=== PATIENT | female | born 1990 | race Caucasian/White ===

== ENCOUNTER 2017-09-19 15:05 | Emergency (ER) | payer BC ==
[~2017-09-19] VITALS: Ht 170.2 cm; Wt 73.4 kg
[~2017-09-19 15:05] MED LIST: DOCUSATE SODIU100 M1 PO; FIORICET,ESG1 TABLET PO; MULTIVITAMIN1 EAC2 PO; NAPROSYN500 MG PO; PEPCID20 MG PO; Percocet 5/325,Endoc PO; ULTRAM50 MG PO; ZOFRAN4 MG PO; vitamin b
[2017-09-19 17:06] LABS: HEMATOCRIT 40.5 % (36.0-46.0); HEMOGLOBIN 13.9 G/DL (11.9-15.5); MCH 30.1 PG (29.0-34.0); MCHC 34.3 G/DL (30.0-36.0); MCV 87.7 FL (83-99); PLATELET COUNT 321 K/uL (156-360); RBC DIS.WIDTH-CV 11.9 % (11.8-14.6); RBC DIS.WIDTH-SD 38.2 % (39-53); RED BLOOD COUNT 4.62 M/uL (3.80-5.20); WHITE BLOOD COUNT 8.7 K/uL (4.1-10.2)
[2017-09-19 17:18] LABS: CHLORIDE 107 mEq/L (99-109); POTASSIUM 4.3 mEq/L (3.7-5.4); SODIUM 137 mEq/L (136-147)
[2017-09-19 17:19] LABS: GLUCOSE 87 mg/dL (70-99)
[2017-09-19 17:23] LABS: CREATININE 0.8 mg/dL (0.6-1.3); GFR ESTIMATE (CALCULATED) > 59 mL/min/
[2017-09-19 17:24] LABS: UREA NITROGEN (BUN) 15 mg/dL (9-23)
[2017-09-19 17:31] LABS: QUANTITATIVE HCG < 4.0 MIU/ML
[2017-09-19] MEDS ORDERED: REGLAN10 MG PO (17:46)
[2017-09-19 18:32] VITALS: BP 120/79
== END 2017-09-19 18:33 | disposition home or self-care (01) ==
LOC: EME 15:05
PROVIDERS: Physician Assistant
DX: G43.909 Migraine, unspecified, not intractable, without status migrainosus (principal); R00.2 Palpitations; F41.0 Panic disorder [episodic paroxysmal anxiety]; Z88.5 Allergy status to narcotic agent; Z88.6 Allergy status to analgesic agent
CPT/HCPCS: 80048; 84702; 85027; 93005; 99281; 99283; J1885